=== PATIENT | female | born 1950 | race Hispanic/Latino ===

== ENCOUNTER 2018-01-31 19:11 | Emergency (ER) | payer OTHER ==
[2018-01-31 19:52] LABS: BASOPHILS % (AUTO) 0.3 % (0.0-5.0); EOSINOPHILS % (AUTO) 1.6 % (0.0-8.0); HEMATOCRIT 38.3 % (36-48); LYMPHOCYTES % (AUTO) 42.8 % (21.0-51.0); MEAN CORPUSCULAR HEMOGLOBIN 29.9 pg (27.0-33.0); MEAN CORPUSCULAR HGB CONC 32.6 g/dL (32.0-36.0); MEAN CORPUSCULAR VOLUME 91.8 fL (79-99); MONOCYTES % (AUTO) 8.8 % (3.0-13.0); NEUTROPHILS % (AUTO) 46.5 % (40.0-77.0); PLATELET COUNT (AUTO) 166 K/uL (130-400); RED BLOOD CELL COUNT(AUTO) 4.17 MIL/uL (4.00-5.50); RED CELL DISTRIBUTION WIDTH 13.6 % (11.0-15.5); WHITE BLOOD COUNT (AUTO) 6.3 K/uL (4.8-10.8)
[2018-01-31] MEDS ORDERED: SODIUM CHLORIDE 0.9% 1000ML 1,000 ML IV ONE (19:55)
[2018-01-31 20:02] LABS: INR 0.97 (0.85-1.15); PARTIAL THROMBOPLASTIN TIME 28.2 SEC (26.3-35.5); PROTHROMBIN TIME 10.2 SEC (9.6-11.6)
[2018-01-31 20:03] LABS: CREATININE 1.1 mg/dL (0.5-1.5); POTASSIUM 3.5 mmol/L (3.5-5.1)
[2018-01-31 20:13] LABS: BILIRUBIN,TOTAL 0.2 mg/dL (0.2-1.0); TOTAL PROTEIN, SERUM 6.8 g/dL (6.0-8.3)
== END 2018-01-31 20:52 | disposition home or self-care (01) ==
LOC: EDH 19:11
DX: E86.0 Dehydration (principal); R55 Syncope and collapse
CPT/HCPCS: 36415; 70450; 71045; 80053; 82550; 83874; 84484; 85025; 85610; 85730; 93005; 94761; 96360; 99285; J7030

== ENCOUNTER 2018-06-06 07:47 | Emergency (ER) | payer OTHER ==
[2018-06-06 08:23] LABS: APPEARANCE,URINE Cloudy (CLEAR); BASOPHILS % (AUTO) 0.7 % (0.0-5.0); BILIRUBIN,URINE Negative (NEGATIVE); COLOR,URINE Yellow (YELLOW); EOSINOPHILS % (AUTO) 0.9 % (0.0-8.0); GLUCOSE, URINE (UA) Negative (NEGATIVE); KETONES,URINE Negative (NEGATIVE); LEUKOCYTE ESTERASE ,URINE Negative (NEGATIVE); MEAN CORPUSCULAR HEMOGLOBIN 30.6 pg (27.0-33.0); MEAN CORPUSCULAR HGB CONC 33.7 g/dL (32.0-36.0); MEAN CORPUSCULAR VOLUME 90.8 fL (79-99); MONOCYTES % (AUTO) 7.1 % (3.0-13.0); NEUTROPHILS % (AUTO) 47.3 % (40.0-77.0); NITRATE,URINE Negative (NEGATIVE); OCCULT BLOOD,URINE Negative (NEGATIVE); PLATELET COUNT (AUTO) 221 K/uL (130-400); PROTEIN,URINE Negative (NEGATIVE); RED CELL DISTRIBUTION WIDTH 13.2 % (11.0-15.5); UROBILINOGEN,URINE 0.2 mg/dL (0.2-1.0); WHITE BLOOD COUNT (AUTO) 6.2 K/uL (4.8-10.8)
[2018-06-06 08:30] LABS: CREATININE 0.7 mg/dL (0.5-1.5); POTASSIUM 3.9 mmol/L (3.5-5.1)
[2018-06-06] MEDS ORDERED: ONDANSETRON ODT 4 MG TAB ONE (08:31)
[2018-06-06 08:34] LABS: ALBUMIN 3.4 g/dL (3.5-5.0); BILIRUBIN,TOTAL 0.4 mg/dL (0.2-1.0); TOTAL PROTEIN, SERUM 7.2 g/dL (6.0-8.3)
[2018-06-06 08:35] LABS: INR 0.99 (0.85-1.15); PARTIAL THROMBOPLASTIN TIME 29.2 SEC (26.3-35.5); PROTHROMBIN TIME 10.4 SEC (9.6-11.6)
[2018-06-06] MEDS ORDERED: MAG HYDROX/AL HYDROX/SIMETH ES 30 ML SUSP UDCUP ONE (09:03)
[2018-06-06] MEDS ORDERED: LIDOCAINE HCL 2% VISCOUS 15 ML UDCUP ONE (09:03)
[2018-06-06] MEDS ORDERED: SODIUM CHLORIDE 0.9% 1000ML 1,000 ML IV ONE (09:03)
[2018-06-06 09:04] LABS: BACTERIA,URINE Few /HPF (None Seen); MUCUS,URINE Moderate LPF (None Seen); RBC,URINE None Seen /HPF (0-1); SQUAMOUS EPITHELIAL CELL,UR Moderate /HPF (0-2); WBC,URINE 0-1 /HPF (0-1)
[2018-06-06] MEDS ORDERED: FAMOTIDINE/PF 20 MG/2 ML VIAL IV ONE (09:05)
== END 2018-06-06 10:29 | disposition home or self-care (01) ==
LOC: EDH 07:47
DX: K52.9 Noninfective gastroenteritis and colitis, unspecified (principal); Z90.49 Acquired absence of other specified parts of digestive tract
CPT/HCPCS: 36415; 71045; 80053; 81001; 82150; 82550; 83690; 84484; 85025; 85610; 85730; 93005; 96361; 96374; 99284; J3490; J7030

== ENCOUNTER 2019-03-13 20:33 | Emergency (ER) | payer OTHER ==
[2019-03-13] MEDS ORDERED: METHYLPREDNISOLONE SOD SUCC 125MG/2ML VIAL ONE (20:59)
[2019-03-13] MEDS ORDERED: FAMOTIDINE/PF 20 MG/2 ML VIAL IV ONE (20:59)
[2019-03-13] MEDS ORDERED: DiphenhydrAMINE HCL 50 MG/ML VIAL ONE ×2 (20:59→23:46)
== END 2019-03-13 23:58 | disposition home or self-care (01) ==
LOC: EDH 20:33
DX: T63.441A Toxic effect of venom of bees, accidental (unintentional), initial encounter (principal); Z90.710 Acquired absence of both cervix and uterus; Z90.49 Acquired absence of other specified parts of digestive tract; Z91.030 Bee allergy status; Y92.89 Other specified places as the place of occurrence of the external cause
CPT/HCPCS: 96374; 96375; 99283; J1200 ×2; J2930; J3490

== ENCOUNTER 2020-02-16 21:55 | Emergency (ER) | payer OTHER ==
[2020-02-16 22:26] LABS: BILIRUBIN,URINE Negative (NEGATIVE); COLOR,URINE Dark Yellow (YELLOW); GLUCOSE, URINE (UA) Negative (NEGATIVE); KETONES,URINE Negative (NEGATIVE); LEUKOCYTE ESTERASE ,URINE Small (NEGATIVE); NITRATE,URINE Negative (NEGATIVE); OCCULT BLOOD,URINE Negative (NEGATIVE); PROTEIN,URINE Trace mg/dL (NEGATIVE)
[2020-02-16 22:27] LABS: APPEARANCE,URINE SLIGHTLY CLOUDY (CLEAR)
[2020-02-16] MEDS ORDERED: FAMOTIDINE/PF 20 MG/2 ML VIAL IV ONE (22:35)
[2020-02-16] MEDS ORDERED: HYOSCYAMINE SULFATE 0.125 MG TAB.SUBL SL ONE (22:35)
[2020-02-16 23:06] LABS: BACTERIA,URINE Moderate /HPF (None Seen)
[2020-02-16 23:07] LABS: CALCIUM OXALATE CRYSTALS,UR Moderate /LPF (None Seen)
[2020-02-16] MEDS ORDERED: CEPHALEXIN 500 MG CAPSULE ONE (23:20)
[2020-02-16 23:33] LABS: BASOPHILS % (AUTO) 0.3 % (0.0-5.0); HEMATOCRIT 39.1 % (36-48); LYMPHOCYTES % (AUTO) 44.4 % (21.0-51.0); MEAN CORPUSCULAR VOLUME 90.9 fL (79-99); PLATELET COUNT (AUTO) 205 K/uL (130-400); RED CELL DISTRIBUTION WIDTH 12.9 % (11.0-15.5); WHITE BLOOD COUNT (AUTO) 9.3 K/uL (4.8-10.8)
[2020-02-16 23:49] LABS: CREATININE 0.8 mg/dL (0.5-1.5); POTASSIUM 3.6 mmol/L (3.5-5.1)
[2020-02-16 23:54] LABS: ALBUMIN 3.5 g/dL (3.5-5.0); BILIRUBIN,TOTAL 0.3 mg/dL (0.2-1.0); TOTAL PROTEIN, SERUM 7.1 g/dL (6.0-8.3)
== END 2020-02-17 00:04 | disposition home or self-care (01) ==
LOC: EDH 21:55
DX: N39.0 Urinary tract infection, site not specified (principal); R10.13 Epigastric pain; R03.0 Elevated blood-pressure reading, without diagnosis of hypertension; Z91.030 Bee allergy status; Z90.710 Acquired absence of both cervix and uterus; Z90.49 Acquired absence of other specified parts of digestive tract
CPT/HCPCS: 36415; 80053; 81001; 82150; 83690; 85025; 87088; 96374; 99283; J3490

== ENCOUNTER 2020-10-11 23:45 | Emergency (ER) | payer MEDICARE, OTHER ==
[~2020-10-11] VITALS: Ht 157.5 cm; Wt 87.1 kg
[2020-10-12 01:17] VITALS: BP 157/69
[2020-10-12] MEDS ORDERED: KETOROLAC 60 MG VIAL (30MG/ML) IM SCH (01:30)
[2020-10-12] MEDS ORDERED: LIDOCAINE 5% TOPICAL PATCH TP SCH (01:30)
[2020-10-12 01:37] VITALS: BP 128/67
[2020-10-12] MEDS ORDERED: ORPH-43 PO (02:22)
[2020-10-12] MEDS ORDERED: MELO7.5T12 PO (02:22)
[2020-10-12] MEDS ORDERED: LIDOP TP (02:22)
[2020-10-12 02:35] VITALS: BP 120/66
== END 2020-10-12 02:22 | disposition home or self-care (01) ==
LOC: EDH 23:45
DX: M62.838 Other muscle spasm (principal); F43.9 Reaction to severe stress, unspecified; Z79.899 Other long term (current) drug therapy
CPT/HCPCS: 96372; 99283; J1885

== ENCOUNTER 2021-03-03 18:19 | Emergency (ER) | payer MEDICARE ==
[~2021-03-03] VITALS: Ht 160 cm; Wt 87.1 kg
[~2021-03-03 18:19] MED LIST: LIDOP TP; MELO7.5T12 PO; ORPH-43 PO
[2021-03-03] MEDS ORDERED: ONDANSETRON 4MG INJ ONE (18:23)
[2021-03-03] MEDS ORDERED: MORPHINE 2 MG SYG ONE (18:24)
[2021-03-03] MEDS ORDERED: MORPHINE 4 MG SYG IV ONE (19:30)
[2021-03-03] MEDS ORDERED: ONDANSETRON 4MG INJ IVP ONE (19:30)
[2021-03-03 20:18] VITALS: BP 114/58
== END 2021-03-03 20:19 | disposition home or self-care (01) ==
LOC: EDH 18:19
DX: S68.121A Partial traumatic metacarpophalangeal amputation of left index finger, initial encounter (principal); E11.9 Type 2 diabetes mellitus without complications; Z79.1 Long term (current) use of non-steroidal anti-inflammatories (NSAID); Z79.899 Other long term (current) drug therapy; X58.XXXA Exposure to other specified factors, initial encounter; Y93.89 Activity, other specified; Y92.89 Other specified places as the place of occurrence of the external cause; Y99.8 Other external cause status
CPT/HCPCS: 73140; 96374; 96375; 99284; J2405

== ENCOUNTER 2022-01-20 17:19 | Observation (INO) | payer MEDICARE ==
[~2022-01-20] VITALS: Ht 160 cm; Wt 86.8 kg
[~2022-01-20 17:19] MED LIST changes: +PANT40GR PO
[2022-01-20] MEDS ORDERED: ENAL5TAB17 PO (17:26)
[2022-01-20] MEDS ORDERED: METO25TA6 PO (17:26)
[2022-01-20 17:46] LABS: BASOPHILS % (AUTO) 0.1 % (0.0-5.0); EOSINOPHILS % (AUTO) 0.6 % (0.0-8.0); HEMATOCRIT 38.5 % (36-48); LYMPHOCYTES % (AUTO) 43.7 % (21.0-51.0); MEAN CORPUSCULAR HEMOGLOBIN 30.3 pg (27.0-33.0); MEAN CORPUSCULAR HGB CONC 33.2 g/dL (32.0-36.0); MONOCYTES % (AUTO) 7.2 % (3.0-13.0); PLATELET COUNT (AUTO) 194 K/uL (130-400); RED BLOOD CELL COUNT(AUTO) 4.23 MIL/uL (4.00-5.50); RED CELL DISTRIBUTION WIDTH 12.8 % (11.0-15.5); WHITE BLOOD COUNT (AUTO) 7.1 K/uL (4.8-10.8)
[2022-01-20] MEDS ORDERED: ASPIRIN 81MG CHEW TAB PO STA (17:58)
[2022-01-20] MEDS ORDERED: NITROGLYCERIN 0.4 MG SL TAB SL STA (17:58)
[2022-01-20 18:04] LABS: CREATININE 0.8 mg/dL (0.5-1.5); POTASSIUM 3.9 mmol/L (3.5-5.1)
[2022-01-20 18:13] LABS: ALBUMIN 3.3 g/dL (3.5-5.0); TOTAL PROTEIN, SERUM 6.9 g/dL (6.0-8.3)
[2022-01-20] MEDS ORDERED: KETOROLAC 15MG/ML VIAL (15MG/ML) IV ONE (20:00)
[2022-01-20] MEDS ORDERED: LABETALOL 20MG SYG IV PRN (21:00)
[2022-01-20] MEDS ORDERED: HYDRALAZINE 20MG/ML VIAL IV PRN (21:00)
[2022-01-20] MEDS ORDERED: DOCUSATE SODIUM 100 MG CAP PO PRN (21:00)
[2022-01-20] MEDS ORDERED: ACETAMINOPHEN 325 MG TAB PO PRN (21:00)
[2022-01-20] MEDS ORDERED: ACETAMINOPHEN 650 MG SUPPOSITORY RC PRN (21:00)
[2022-01-20] MEDS ORDERED: TEMAZEPAM 15 MG CAPSULE PO PRN (21:00)
[2022-01-20] MEDS ORDERED: LACTATED RINGERS 1000ML 1,000 ML IV SCH (21:00)
[2022-01-20] MEDS ORDERED: LACTULOSE 20 GM/30 ML UDCUP PO PRN (21:00)
[2022-01-20] MEDS ORDERED: CLONIDINE HCL 0.1 MG TABLET PO PRN (21:00)
[2022-01-20] MEDS ORDERED: ONDANSETRON 4MG INJ IVP PRN (21:00)
[2022-01-20 22:23] VITALS: BP 159/70
[2022-01-21 04:35] VITALS: BP 132/75
[2022-01-21 05:43] LABS: INR 0.97 (0.85-1.15); PROTHROMBIN TIME 10.6 SEC (9.6-11.6)
[2022-01-21 05:44] LABS: PARTIAL THROMBOPLASTIN TIME 29.7 SEC (26.3-35.5)
[2022-01-21 05:46] LABS: BASOPHILS % (AUTO) 0.3 % (0.0-5.0); EOSINOPHILS % (AUTO) 0.7 % (0.0-8.0); HEMATOCRIT 37.9 % (36-48); LYMPHOCYTES % (AUTO) 50.4 % (21.0-51.0); MEAN CORPUSCULAR HEMOGLOBIN 30.4 pg (27.0-33.0); MEAN CORPUSCULAR HGB CONC 33.2 g/dL (32.0-36.0); MEAN CORPUSCULAR VOLUME 91.3 fL (79-99); MONOCYTES % (AUTO) 6.8 % (3.0-13.0); NEUTROPHILS % (AUTO) 41.5 % (40.0-77.0); PLATELET COUNT (AUTO) 185 K/uL (130-400); RED BLOOD CELL COUNT(AUTO) 4.15 MIL/uL (4.00-5.50); RED CELL DISTRIBUTION WIDTH 12.5 % (11.0-15.5); WHITE BLOOD COUNT (AUTO) 6.7 K/uL (4.8-10.8)
[2022-01-21 06:00] LABS: CREATININE 0.7 mg/dL (0.5-1.5); MAGNESIUM 1.9 mg/dL (1.80-2.40); PHOSPHORUS 4.2 mg/dL (2.5-4.9); POTASSIUM 3.6 mmol/L (3.5-5.1); THYROID STIMULATING HORMONE 4.98 uIU/mL (0.36-3.74)
[2022-01-21 08:00] VITALS: BP 115/67
[2022-01-21] MEDS ORDERED: ASPIRIN 81MG CHEW TAB PO SCH (09:00)
[2022-01-21 12:00] VITALS: BP 124/72
[2022-01-21] MEDS ORDERED: SIMV-43 PO (12:53)
[2022-01-21] MEDS ORDERED: ASPI-1005 PO (12:53)
== END 2022-01-21 15:15 | disposition home or self-care (01) ==
LOC: EDH 17:19 → EDHIP 20:39 → 4DH 22:15
PROVIDERS: ADMIT Internal Medicine Critical Care Medicine; ATTEND Internal Medicine Critical Care Medicine
DX: R07.89 Other chest pain (principal); M25.512 Pain in left shoulder; I10 Essential (primary) hypertension; E66.9 Obesity, unspecified; E11.9 Type 2 diabetes mellitus without complications; G89.29 Other chronic pain; E11.65 Type 2 diabetes mellitus with hyperglycemia; I25.10 Atherosclerotic heart disease of native coronary artery without angina pectoris; Z68.33 Body mass index [BMI] 33.0-33.9, adult
CPT/HCPCS: 96374; 96361 ×2; 99285; 84484 ×3; 80053; 83880; 85025 ×2; 85378; 36415 ×2; 71045; 93005 ×2; 84443; 83735; 84100; 80048; 85610; 85730; 86850; 86900; 86901; G0378 ×18; J1885; J7120

== ENCOUNTER 2022-05-08 17:22 | Emergency (ER) | payer MEDICARE ==
[~2022-05-08] VITALS: Ht 157.5 cm; Wt 83.9 kg
[~2022-05-08 17:22] MED LIST changes: +ASPI-1005 PO; +ENAL5TAB17 PO; -LIDOP TP; -MELO7.5T12 PO; +METO25TA6 PO; -ORPH-43 PO; -PANT40GR PO; +SIMV-43 PO
[2022-05-08 18:40] LABS: BASOPHILS % (AUTO) 0.3 % (0.0-5.0); EOSINOPHILS % (AUTO) 0.5 % (0.0-8.0); HEMATOCRIT 41.2 % (36-48); LYMPHOCYTES % (AUTO) 32.9 % (21.0-51.0); MEAN CORPUSCULAR HEMOGLOBIN 30.3 pg (27.0-33.0); MEAN CORPUSCULAR HGB CONC 33.5 g/dL (32.0-36.0); MEAN CORPUSCULAR VOLUME 90.5 fL (79-99); MONOCYTES % (AUTO) 6.2 % (3.0-13.0); NEUTROPHILS % (AUTO) 59.4 % (40.0-77.0); PLATELET COUNT (AUTO) 221 K/uL (130-400); RED BLOOD CELL COUNT(AUTO) 4.55 MIL/uL (4.00-5.50); RED CELL DISTRIBUTION WIDTH 12.5 % (11.0-15.5); WHITE BLOOD COUNT (AUTO) 7.5 K/uL (4.8-10.8)
[2022-05-08 18:44] LABS: APPEARANCE,URINE CLEAR (CLEAR); BILIRUBIN,URINE NEGATIVE (NEGATIVE); COLOR,URINE LIGHT-YELLOW (YELLOW); GLUCOSE, URINE (UA) >=1000 mg/dL (NEGATIVE); KETONES,URINE NEGATIVE (NEGATIVE); LEUKOCYTE ESTERASE ,URINE NEGATIVE Leu/uL (NEGATIVE); NITRATE,URINE NEGATIVE (NEGATIVE); OCCULT BLOOD,URINE NEGATIVE (NEGATIVE); PROTEIN,URINE NEGATIVE (NEGATIVE); UROBILINOGEN,URINE 0.2 mg/dL (0.2-1.0)
[2022-05-08 18:49] LABS: CREATININE 0.9 mg/dL (0.5-1.5); POTASSIUM 4.2 mmol/L (3.5-5.1)
[2022-05-08 18:53] LABS: ALBUMIN 3.5 g/dL (3.5-5.0); TOTAL PROTEIN, SERUM 7.3 g/dL (6.0-8.3)
[2022-05-08 18:57] LABS: SQUAMOUS EPITHELIAL CELL,UR RARE /HPF (0-2)
[2022-05-08] MEDS ORDERED: 0.9%NACL 1000ML 2,000 ML IV ONE (21:00)
[2022-05-08 21:37] VITALS: BP 123/63
== END 2022-05-08 21:47 | disposition home or self-care (01) ==
LOC: EDH 17:22
DX: I11.0 Hypertensive heart disease with heart failure (principal); I50.9 Heart failure, unspecified; E11.9 Type 2 diabetes mellitus without complications; Z90.49 Acquired absence of other specified parts of digestive tract; Z98.890 Other specified postprocedural states; Z79.899 Other long term (current) drug therapy; Z79.82 Long term (current) use of aspirin
CPT/HCPCS: 36415; 71045; 80053; 81001; 82948; 85025

== ENCOUNTER → 2022-06-06 | Outpatient (CLI) | payer MEDICARE | END | disposition home or self-care (01) | LOC: SHCH 11:09 | PROVIDERS: ATTEND Student in an Organized Health Care Education/Training Program | DX: I11.0 Hypertensive heart disease with heart failure (principal); I50.9 Heart failure, unspecified; E78.5 Hyperlipidemia, unspecified | CPT/HCPCS: 93306 ==

== ENCOUNTER 2022-10-03 07:03 | Day surgery (SDC) | payer MEDICARE ==
[2022-10-01 11:38] LABS: BASOPHILS % (AUTO) 0.3 % (0.0-5.0); EOSINOPHILS % (AUTO) 0.8 % (0.0-8.0); HEMATOCRIT 42.8 % (36-48); LYMPHOCYTES % (AUTO) 40.5 % (21.0-51.0); MEAN CORPUSCULAR HEMOGLOBIN 30.4 pg (27.0-33.0); MEAN CORPUSCULAR HGB CONC 32.7 g/dL (32.0-36.0); MEAN CORPUSCULAR VOLUME 92.8 fL (79-99); MONOCYTES % (AUTO) 6.4 % (3.0-13.0); PLATELET COUNT (AUTO) 201 K/uL (130-400); RED BLOOD CELL COUNT(AUTO) 4.61 MIL/uL (4.00-5.50); WHITE BLOOD COUNT (AUTO) 6.3 K/uL (4.8-10.8)
[2022-10-01 11:48] LABS: PROTHROMBIN TIME 10.9 SEC (9.6-11.6)
[2022-10-01 11:50] LABS: CREATININE 0.7 mg/dL (0.5-1.5); POTASSIUM 4.4 mmol/L (3.5-5.1)
[2022-10-01 11:52] VITALS: BP 104/59
[2022-10-03] VITALS (8 sets, daily range): BP systolic 98–113; BP diastolic 58–68
[~2022-10-03] VITALS: Ht 157.5 cm; Wt 77.6 kg
[~2022-10-03 07:03] MED LIST changes: -ASPI-1005 PO; +CALC-242 PO; +EMPA25TA PO; -ENAL5TAB17 PO; +FURO20TA4 PO; +METO-408 PO; -METO25TA6 PO; +MULT-1367 PO; +SACU1TAB PO; +SEMA0.258 SQ; +SPIR25TA6 PO; +VITAMIN C PO
[2022-10-03] MEDS ORDERED: 0.9%NACL 1000ML 1,000 ML IV ONE (08:09)
[2022-10-03] MEDS ORDERED: LIDOCAINE HCL 1% MDV 50ML VIAL ONE (10:30)
[2022-10-03] MEDS ORDERED: CEFAZOLIN SODIUM 1 GM VIAL ONE (10:30)
[2022-10-03] MEDS ORDERED: BUPIVACAINE/PF 0.25% 10ML VIAL IJ ONE (10:30)
[2022-10-03] MEDS ORDERED: MEPERIDINE-PF 25 MG/ML SYG ONE ×4 (10:47→12:05)
[2022-10-03] MEDS ORDERED: MIDAZOLAM HCL 1 MG/ML 2ML VIAL ONE ×4 (10:47→12:05)
[2022-10-03] MEDS ORDERED: IODIXANOL 320 MG/ML 100 ML VIAL ONE (10:52)
[2022-10-03] MEDS ORDERED: TRAM50TA4 PO (12:43)
[2022-10-03] MEDS ORDERED: ACETAMINOPHEN 500 MG TABLET PO PRN (13:00)
[2022-10-03] MEDS ORDERED: ACETAMINOPHEN WITH CODEINE 1 TAB TAB PO PRN (13:00)
== END 2022-10-03 16:20 | disposition home or self-care (01) ==
LOC: DAH 07:03
PROVIDERS: ATTEND Internal Medicine Cardiovascular Disease
DX: I11.0 Hypertensive heart disease with heart failure (principal); I50.22 Chronic systolic (congestive) heart failure; I42.8 Other cardiomyopathies; J44.9 Chronic obstructive pulmonary disease, unspecified; I44.7 Left bundle-branch block, unspecified; E11.9 Type 2 diabetes mellitus without complications; E78.5 Hyperlipidemia, unspecified; M19.90 Unspecified osteoarthritis, unspecified site; Z90.710 Acquired absence of both cervix and uterus; Z98.890 Other specified postprocedural states; Z82.49 Family history of ischemic heart disease and other diseases of the circulatory system; Z83.3 Family history of diabetes mellitus; Z79.899 Other long term (current) drug therapy; Z79.01 Long term (current) use of anticoagulants
CPT/HCPCS: 80048; 85025; 85610; 85730; 36415; 93005; 33249; 33225; 82948 ×2; 71045; C1769; C1882; C1900; C1896; C1895; J0690; J7030; J2250 ×3; J3490 ×2; J2175 ×3; Q9967; A4215; A4222; A4221; A4663; A4606; A4223 ×3; 99156; 99157

== ENCOUNTER 2022-10-04 06:36 | Emergency (ER) | payer MEDICARE ==
[~2022-10-04] VITALS: Ht 157.5 cm; Wt 79.1 kg
[~2022-10-04 06:36] MED LIST changes: +TRAM50TA4 PO
[2022-10-04 09:07] LABS: BASOPHILS % (AUTO) 0.3 % (0.0-5.0); EOSINOPHILS % (AUTO) 1.4 % (0.0-8.0); HEMATOCRIT 42.8 % (36-48); LYMPHOCYTES % (AUTO) 36.1 % (21.0-51.0); MEAN CORPUSCULAR HGB CONC 31.8 g/dL (32.0-36.0); MEAN CORPUSCULAR VOLUME 94.3 fL (79-99); MONOCYTES % (AUTO) 7.6 % (3.0-13.0); NEUTROPHILS % (AUTO) 54.3 % (40.0-77.0); PLATELET COUNT (AUTO) 168 K/uL (130-400); RED BLOOD CELL COUNT(AUTO) 4.54 MIL/uL (4.00-5.50); RED CELL DISTRIBUTION WIDTH 13.2 % (11.0-15.5); WHITE BLOOD COUNT (AUTO) 7.2 K/uL (4.8-10.8)
[2022-10-04 09:19] LABS: ALANINE AMINOTRANSFERASE 17 U/L (12-78); ALBUMIN 3.4 g/dL (3.5-5.0); ASPARTATE AMINOTRANSFERASE 17 U/L (10-37); CARBON DIOXIDE 30 mmol/L (21-32); CHLORIDE 101 mmol/L (101-111); CREATININE 0.7 mg/dL (0.5-1.5); CRP QUANTITATIVE < 2.00 mg/L (0.00-9.0); GLOMERULAR FILTR. RATE CALC 92 mL/min (>90); GLUCOSE,RANDOM 87 mg/dL (70-105); POTASSIUM 4.5 mmol/L (3.5-5.1); SODIUM SERUM 136 mmol/L (136-145); TOTAL PROTEIN, SERUM 6.8 g/dL (6.0-8.3); UREA NITROGEN, BLOOD 8 mg/dL (7-18)
[2022-10-04 10:59] VITALS: BP 102/53
== END 2022-10-04 10:58 | disposition home or self-care (01) ==
LOC: EDH 06:36
DX: M79.89 Other specified soft tissue disorders (principal); E11.9 Type 2 diabetes mellitus without complications; Z95.0 Presence of cardiac pacemaker; J44.9 Chronic obstructive pulmonary disease, unspecified; Z79.52 Long term (current) use of systemic steroids; Z79.82 Long term (current) use of aspirin; Z79.84 Long term (current) use of oral hypoglycemic drugs; Z79.899 Other long term (current) drug therapy; Z91.030 Bee allergy status
CPT/HCPCS: 36415; 71046; 80053; 85025; 86140; 93971

== ENCOUNTER → 2022-10-28 | Outpatient (CLI) | payer MEDICARE ==
[2022-10-28 12:25] LABS: CREATININE 0.8 mg/dL (0.5-1.5); POTASSIUM 4.2 mmol/L (3.5-5.1)
== END | disposition home or self-care (01) ==
LOC: LAB 09:20
PROVIDERS: ATTEND Student in an Organized Health Care Education/Training Program
DX: I50.22 Chronic systolic (congestive) heart failure (principal)
CPT/HCPCS: 36415; 80048; 83880

== ENCOUNTER → 2023-03-19 | Outpatient (CLI) | payer MEDICARE ==
[~2023-03-19] MED LIST changes: +CETI10CA5 PO; +HYDR50CA50 PO
== END | disposition home or self-care (01) ==
LOC: SHCH 07:45
PROVIDERS: ATTEND Student in an Organized Health Care Education/Training Program
DX: I10 Essential (primary) hypertension (principal)
CPT/HCPCS: 93306

== ENCOUNTER 2024-07-18 17:30 | Emergency (ER) | payer MEDICARE ==
[~2024-07-18] VITALS: Ht 157.5 cm; Wt 80.7 kg
[2024-07-18] MEDS: acetaMINOPHEN 325 MG TAB PO ONE (18:00)
--- NOTE | 2024-07-18 19:19 | HMCIMG ---
LUMBAR SPINE 2-3VWS HISTORY: Status post fall COMPARISON: None FINDINGS: 2 images of lumbar spine were obtained. Post cholecystectomy changes are seen. There are degenerative changes with lumbar spine spondylosis. Disc space narrowings are seen at L4-5 and L5-S1. There is straightening of normal lordotic curvature which may be related to muscle spasm or positioning. No loss of vertebral height is seen. No fracture or dislocation is seen. Degenerative changes are seen. IMPRESSION: 1. No fracture is seen.
--- NOTE | 2024-07-18 19:31 | HMCIMG ---
KNEE 3 VW BILATERAL REASON: fall. COMPARISON: None TECHNIQUE: 4 images of bilateral knees were obtained with weightbearing. FINDINGS: No acute displaced fracture or dislocation is seen. IMPRESSION: Findings as described above.
--- NOTE | 2024-07-18 19:59 | ERN ---
ED Note History of Present Illness Stated Complaint: FALL Chief Complaint: Mechanical Fall Time Seen by MD: 17:43 Time Seen by Midlevel: 17:43 Dictation: Patient is a 74-year-old female with a history of CHF, defibrillator, pacemaker who presents to the emergency department with complaints of bilateral knee pain, low back pain after a ground level fall just prior to arrival. Patient reports she was walking from the has to the parking lot when she fell in a hole and fell on her knees. Patient denies any head trauma. Denies any LOC, denies any nausea or vomiting. Denies any use of blood thinners. Denies any head strike, chest pain back pain or any other injuries. Patient denies any urinary or fecal incontinence. Allergies: Coded Allergies: No Known Allergies (Unverified Allergy, Unknown, 12/22/18) beeswax (Unverified Allergy, Unknown, 03/14/19) Home Meds Active Scripts Hydroxyzine Pamoate (Hydroxyzine Pamoate) 50 Mg Capsule, 50 MG PO TIDP PRN for ANXIETY/AGITATION, #30 CAP 2 Refills Prov:LINNETTE YOUNG Sr., MD 01/30/23 Cetirizine HCl (Zyrtec) 10 Mg Capsule, 10 MG PO BID, #60 CAP 2 Refills Prov:LINNETTE YOUNG Sr., MD 01/30/23 Tramadol Hcl (Tramadol HCl) 50 Mg Tablet, 50 MG PO Q6HPRN PRN for PAIN, #30 TAB 0 Refills Prov:BEATRIZ QUARLES MD 10/03/22 Reported Medications Calcium Carb/Vit D3/Mag11/Zinc (Gjiydki-Ipy-Dtqb-Vit D Tablet) 1 Each Tablet, 1 EACH PO DAILY, TAB 10/01/22 Multivitamin (Multivitamin) 1 Each Tablet, 2 EACH PO DAILY, TAB 10/01/22 [Vitamin C] No Conflict Check, 750 MG PO DAILY 10/01/22 Furosemide (Furosemide) 20 Mg Tablet, 20 MG PO DAILY PRN for EDEMA, TAB 10/01/22 Spironolactone (Spironolactone) 25 Mg Tablet, 25 MG PO DAILY, TAB 10/01/22 Sacubitril/Valsartan (Entresto 24 mg-26 mg Tablet) 1 Each Tablet, 1 EACH PO HS, TAB 10/01/22 Empagliflozin (Jardiance) 25 Mg Tablet, 25 MG PO DAILY, TAB 10/01/22 Semaglutide (Ozempic) 0.25 Mg/0.4 Ml Pen.injctr, 0.05 MG SQ QWEEK 10/01/22 Simvastatin (Simvastatin) 20 Mg Tablet, 20 MG PO HS, TAB 10/01/22 Metoprolol Succinate (Metoprolol Succinate) 25 Mg Tab.er.24h, 25 MG PO DAILY, TAB 10/01/22 Past Medical History Past Medical History: CHF, Diabetes-Type II, Heart Disease, Hypertension Additional Past Medical Hx: CONSTIPATION Surgical History: Pacer/AICD Surgical History Other: BACK, CATARACTS Family History: Negative Social History: Negative RN Note Reviewed/Agreed w/PFSH: Yes Review of System Dictation Constitutional: Negative for fever,chills, and weight loss Eyes: Negative for injury, pain,redness, and discharge ENT: Negative for injury,pain or swelling Cardiovascular: Negative for chest pain, palpitations, and edema Respiratory: Negative for shortness of breath, cough, and wheezing, Abdomen/GI: Negative for abdominal pain, nausea, vomiting, diarrhea, and constipation Back: Negative for injury and pain : Negative for injury, bleeding and discharge MS/Extremity: Negative for injury and deformity bilateral knee pain, low back pain Skin: Negative for rash, and discoloration Neuro: Negative for headache, weakness, numbness, tingling, and seizure Psych: Negative for suicide ideation, homicidal ideation, and hallucinations Initial Vital Sign VS Vital Signs Date Time Temp Pulse Resp B/P (MAP) Pulse Ox O2 Delivery O2 Flow Rate FiO2 07/18/24 17:31 98.1 73 16 154/70 96 Room Air 0 Physical Exam Dictation Vital Signs reviewed General Appearance: Alert, oriented x 3, no acute distress, well developed, nourished. Head and Face: non-traumatic. Eyes: PERRL, pink conjunctivas, eyelid no trauma, anterior chamber with arcus senilis. Ears: Pinnas intact and no signs of trauma or erythema ear canals clear and no discharge TM no erythema Nose: No discharge, no bleeding. Oropharynx: Mouth normal, tongue pink. pharynx clear,no erythema, tonsils no exudates, no abscesses noted, mucous membrane moist Neck: Supple, non-tender, no thyromegaly, no masses, no JVD, no bruits Breast:Deferred Chest:No tenderness, no crepitus, no paradoxical movement, no retractions Lungs:Clear, well-ventilated, symmetric, no rales, no wheezing, no rhonchi, no stridor, good breath sounds bilaterally Heart: Regular rate, regular rhythm, no murmur, no gallops Vascular: no peripheral edema, dorsalis pedis Abdomen: Soft, positive bowel sounds, nondistended, no guarding, nontender, no rebound, no masses no hepatomegaly, no splenomegaly, no Rolle's sign, no hernias. Rectal: Deferred Genital: Deferred Neurological: Normal speech, motor function intact, sensory function intact Musculoskeletal: Neck nontender, full range of motion, full range of motion, low back tenderness, no deformities Extremities: nontender, full range of motion tenderness to knee, full range of motion, no bruising or wounds. Cap refill less than 2 seconds Skin: Color pink, dry, no turgor, no rash, no lacerations, no abrasions, no contusions. Lymphatic: Deferred Results (Laboratory/Radiology) Laboratory/Radiology REASON: fall ORDERING PHYSICIAN: SHARON BAILEY [employer] PROCEDURE: LUMB 2 3VW - LUMBAR SPINE 2-3VWS LUMBAR SPINE 2-3VWS HISTORY: Status post fall COMPARISON: None FINDINGS: 2 images of lumbar spine were obtained. Post cholecystectomy changes are seen. There are degenerative changes with lumbar spine spondylosis. Disc space narrowings are seen at L4-5 and L5-S1. There is straightening of normal lordotic curvature which may be related to muscle spasm or positioning. No loss of vertebral height is seen. No fracture or dislocation is seen. Degenerative changes are seen. IMPRESSION: 1. No fracture is seen. ON: fall ORDERING PHYSICIAN: SHARON BAILEY [employer] PROCEDURE: KNEE 3VBIL - KNEE 3 VW BILATERAL KNEE 3 VW BILATERAL REASON: fall. COMPARISON: None TECHNIQUE: 4 images of bilateral knees were obtained with weightbearing. FINDINGS: No acute displaced fracture or dislocation is seen. IMPRESSION: Findings as described above. Labs Reviewed?: Yes ED Course ED Course Orders Procedure Category Date Status Time Knee 3 Vw Bilateral RAD 07/18/24 Resulted 17:52 Lumbar Spine 2-3vws RAD 07/18/24 Resulted 17:52 Acetaminophen 325 Tab PHA 07/18/24 Complete (Tylenol 325mg Tab 18:00 Current Medications Medications (Trade) Dose Ordered Sig/Tunde Route PRN Reason Start Time Stop Time Status Last Admin Dose Admin Acetaminophen (TYLenol 325MG TAB) 650 mg ONCE ONCE PO 07/18/24 18:00 07/18/24 18:01 DC Vital Signs Date Time Temp Pulse Resp B/P (MAP) Pulse Ox O2 Delivery O2 Flow Rate FiO2 07/18/24 17:31 98.1 73 16 154/70 96 Room Air 0 Medical Decision Making MDM Patient is a 74-year-old female with a history of CHF, defibrillator, pacemaker who presents to the emergency department with complaints of bilateral knee pain, low back pain after a ground level fall just prior to arrival. Patient reports she was walking from the has to the parking lot when she fell in a hole and fell on her knees. Patient denies any head trauma. Denies any LOC, denies any nausea or vomiting. Denies any use of blood thinners. Denies any head strike, chest pain back pain or any other injuries. Patient denies any urinary or fecal incontinence. X-ray showed no acute fractures or dislocation. Patient in no acute distress, ambulatory, neurovascular intact. Will be discharged to follow up PCP. Differential diagnosis: Knee sprain, knee fracture, back sprain lumbar fracture Need for hospitalization: Patient does not meet criteria for hospitalization. There are no social concerns with this patient. DX & DISP Disposition: Discharge Departure Impression: Primary Impression: Fall Additional Impressions: Back strain, Knee pain, bilateral Condition: Stable Additional Instructions: Is follow up with primary doctor in 1-2 days. If symptoms worsen please return to ER. FOLLOW-UP WITH PRIMARY CARE PROVIDER IN 1 TO 2 DAYS. TAKE MEDICATIONS DIRECTED HERE IN THE EMERGENCY ROOM. OKAY TO CONTINUE HOME MEDICATIONS UNLESS OTHERWISE DISCUSSED DURING YOUR VISIT IN THE EMERGENCY ROOM TODAY. RETURN TO YOUR NEAREST EMERGENCY ROOM IF SYMPTOMS WORSEN OR IF THERE IS NO IMPROVEMENT. CALL 911 IF YOU NEED IMMEDIATE ASSISTANCE. TAKE TYLENOL OR MOTRIN [id number] NEEDED AND IF NO CONTRAINDICATIONS ARE PRESENT. INCREASE ORAL HYDRATION. A WOUND CULTURE OR URINE CULTURE WAS ORDERED HERE IN THE EMERGENCY ROOM DEPARTMENT PLEASE FOLLOW-UP WITH PRIMARY CARE PROVIDER AND ADVISE THEM TO GET REPEAT PORTS FROM OUR FACILITY. IF YOU HAD ANY SILVIA WRAP/SPLINTS THAT WERE APPLIED HERE, PLEASE DO NOT REMOVE THEM UNTIL YOU SEE YOUR PRIMARY CARE OR SPECIALTY. Referrals: MINDY FIGUEREDO MD (PCP) Time of Disposition: 19:58 I have reviewed the case, and I agree with, Diagnosis and Plan SHARON BAILEY [facility] Jul 18, 2024 19:59
[2024-07-18 21:57] VITALS: BP 142/65; PULSE 78; RESP 20; TEMP 97.8; O2SAT 97
== END 2024-07-18 22:01 | disposition home or self-care (01) ==
LOC: EDH 17:30
DX: S39.012A Strain of muscle, fascia and tendon of lower back, initial encounter (principal); M25.561 Pain in right knee; M25.562 Pain in left knee; E11.9 Type 2 diabetes mellitus without complications; I11.0 Hypertensive heart disease with heart failure; I50.9 Heart failure, unspecified; Z79.84 Long term (current) use of oral hypoglycemic drugs; Z79.85 Long-term (current) use of injectable non-insulin antidiabetic drugs; Z79.899 Other long term (current) drug therapy; Z91.030 Bee allergy status; W17.2XXA Fall into hole, initial encounter; Y93.01 Activity, walking, marching and hiking; Y92.89 Other specified places as the place of occurrence of the external cause; Y99.8 Other external cause status
CPT/HCPCS: 72100; 99284

== ENCOUNTER → 2024-09-13 | Outpatient (CLI) | payer MEDICARE ==
[~2024-09-13] MED LIST changes: +GADOTERATE MEGLUMINE 10 MMOL/20 ML VIAL IV ONE
[2024-09-13 11:44] LABS: CREATININE 0.6 mg/dL (0.5-1.0); POTASSIUM 4.1 mmol/L (3.5-5.1)
[2024-09-13 11:49] LABS: ALBUMIN 3.6 g/dL (3.5-5.0); BILIRUBIN,TOTAL 0.4 mg/dL (0.2-1.0); TOTAL PROTEIN, SERUM 7.2 g/dL (6.0-8.3)
--- NOTE | 2024-09-13 16:41 | HMCIMG ---
Exam Type: MRI OF THE ABDOMEN WITH AND WITHOUT CONTRAST Comparison Study: none History: K76.89 Other specified diseases of liver PROTOCOL: Examination is done with multiecho multiplanar sequences before and after gadolinium administration. ASSET with multiplanar 3-D reconstructions MR cholangiopancreatography sequences are also available for review. FINDINGS: No evidence of nephro or ureterolithiasis is found. No hydronephrosis or ureteral dilatation is seen. There are simple cysts of both kidneys. The stomach is unremarkable. There is no evidence of gastric dilatation. No blastic thickening is noted to suggest inflammation or tumor. There is no perforation. There is no gastric outlet obstruction. There is no ulceration. The spleen is unremarkable. It is not enlarged. The pancreas shows normal anatomy. It is not fatty replaced. It shows no lesions. The pancreatic duct is not dilated. The gallbladder is surgically absent. The adrenal glands are unremarkable. There is no enlargement. No lesions are noted. There are small simple cysts of the liver which is otherwise unremarkable. The visualized segments of large and small bowel appear unremarkable. The bony and vascular structures are unremarkable for the patient's age. IMPRESSION: No acute pathology. Simple cysts of the kidneys and the liver. Status post cholecystectomy.
== END | disposition home or self-care (01) ==
LOC: RAH 10:54
PROVIDERS: ATTEND Internal Medicine Gastroenterology
DX: N28.1 Cyst of kidney, acquired (principal); K76.0 Fatty (change of) liver, not elsewhere classified; K76.89 Other specified diseases of liver; Z90.49 Acquired absence of other specified parts of digestive tract
CPT/HCPCS: 74183; 80053; 36415; A9575

== ENCOUNTER 2024-12-16 13:46 | Observation (INO) | payer MEDICARE ==
[~2024-12-16] VITALS: Ht 157.5 cm; Wt 86.0 kg
[~2024-12-16 13:46] MED LIST changes: -GADOTERATE MEGLUMINE 10 MMOL/20 ML VIAL IV ONE
--- NOTE | 2024-12-16 14:15 | NUR ---
DR. MACKAY AT BEDSIDE, COLLECTING PT HISTORY
[2024-12-16 14:37] LABS: NUCLEATED RED BLOOD CELLS 0.0 % (0.0-0.19); PLATELET COUNT (AUTO) 227.0 K/uL (130-400); RED BLOOD CELL COUNT(AUTO) 4.95 MIL/uL (4.00-5.50); RED CELL DISTRIBUTION WIDTH 13.1 % (11.0-15.5); WHITE BLOOD COUNT (AUTO) 11.6 K/uL (4.8-10.8)
[2024-12-16 14:42] LABS: CREATININE 0.7 mg/dL (0.5-1.0); GLOMERULAR FILTR. RATE CALC 91.0 mL/min (>90); GLUCOSE,RANDOM 95.0 mg/dL (70-105); SODIUM SERUM 141.0 mmol/L (136-145); UREA NITROGEN, BLOOD 15.0 mg/dL (7-18)
[2024-12-16] MEDS: 0.9%NACL 1000ML 1,000 ML IV SCH (14:43)
[2024-12-16 14:47] LABS: ASPARTATE AMINOTRANSFERASE 29.0 U/L (10-37); TOTAL PROTEIN, SERUM 8.1 g/dL (6.0-8.3)
[2024-12-16 14:57] LABS: APPEARANCE,URINE CLEAR (CLEAR); GLUCOSE, URINE (UA) >=1000 mg/dL (NEGATIVE); LEUKOCYTE ESTERASE ,URINE NEGATIVE Leu/uL (NEGATIVE); NITRATE,URINE NEGATIVE (NEGATIVE); OCCULT BLOOD,URINE SMALL (NEGATIVE)
[2024-12-16 14:58] LABS: CREATINE KINASE, TOTAL 94 U/L (21-232)
[2024-12-16 15:00] LABS: ADD UA MICROSCOPIC YES
[2024-12-16 15:03] LABS: SQUAMOUS EPITHELIAL CELL,UR RARE /HPF (0-2)
--- NOTE | 2024-12-16 15:23 | HMCIMG ---
EXAM: CT Abdomen and Pelvis Without IV contrast CLINICAL HISTORY: abdominal pain TECHNIQUE: Axial computed tomography images of the abdomen and pelvis without intravenous contrast. CONTRAST: No IV contrast. COMPARISON: CT examination dated June 20, 2021 FINDINGS: LUNG BASES: Air filled cyst in the right middle lobe No pleural effusions are seen. LIVER: Small hypodense cystic lesion in both lobes of the liver, simple cysts likely. These may be further characterized with ultrasound. GALLBLADDER AND BILE DUCTS: Cholecystectomy. No biliary ductal dilatation is evident. PANCREAS: Unremarkable. SPLEEN: Unremarkable. ADRENAL GLANDS: Unremarkable. KIDNEYS, URETERS, AND BLADDER: The kidneys appear within normal limits. There is no hydronephrosis or hydroureter. No urinary calculi are seen. STOMACH AND BOWEL: Few diverticula in the sigmoid and descending colon. Unremarkable appearance of the stomach. No evidence of bowel obstruction. No evidence suggesting enteritis or colitis. APPENDIX: No evidence of acute appendicitis on CT examination. PERITONEUM: 1.5 cm sized umbilical hernia defect. No free fluid. No free air. LYMPH NODES: No lymphadenopathy is evident. REPRODUCTIVE: Hysterectomy. VASCULATURE: Atherosclerotic calcifications in the aorta and its major branches. No evidence of abdominal aortic aneurysm. BONES: No aggressive appearing osseous lesion. No acute osseous pathology evident. IMPRESSION: 1. No acute intraabdominal or pelvic pathology. 2. 1.5 cm umbilical hernia. /[place]
--- NOTE | 2024-12-16 18:38 | ERN ---
ED Note History of Present Illness Stated Complaint: ABDOMINAL PAIN Chief Complaint: Abdominal Pain Time Seen by MD: 13:54 Dictation: 74-year-old female presenting to the emergency department with generalized abdominal pain nausea vomiting no diarrhea no bleeding no chest pain or shortness of breath Allergies: Coded Allergies: No Known Allergies (Unverified Allergy, Unknown, 12/22/18) beeswax (Unverified Allergy, Unknown, 03/14/19) Home Meds Active Scripts Hydroxyzine Pamoate (Hydroxyzine Pamoate) 50 Mg Capsule, 50 MG PO TIDP PRN for ANXIETY/AGITATION, #30 CAP 2 Refills Prov:LINNETTE YOUNG Sr., MD 01/30/23 Cetirizine HCl (Zyrtec) 10 Mg Capsule, 10 MG PO BID, #60 CAP 2 Refills Prov:LINNETTE YOUNG Sr., MD 01/30/23 Tramadol Hcl (Tramadol HCl) 50 Mg Tablet, 50 MG PO Q6HPRN PRN for PAIN, #30 TAB 0 Refills Prov:BEATRIZ QUARLES MD 10/03/22 Reported Medications Calcium Carb/Vit D3/Mag11/Zinc (Klzidhg-Sex-Jfyv-Vit D Tablet) 1 Each Tablet, 1 EACH PO DAILY, TAB 10/01/22 Multivitamin (Multivitamin) 1 Each Tablet, 2 EACH PO DAILY, TAB 10/01/22 [Vitamin C] No Conflict Check, 750 MG PO DAILY 10/01/22 Furosemide (Furosemide) 20 Mg Tablet, 20 MG PO DAILY PRN for EDEMA, TAB 10/01/22 Spironolactone (Spironolactone) 25 Mg Tablet, 25 MG PO DAILY, TAB 10/01/22 Sacubitril/Valsartan (Entresto 24 mg-26 mg Tablet) 1 Each Tablet, 1 EACH PO HS, TAB 10/01/22 Empagliflozin (Jardiance) 25 Mg Tablet, 25 MG PO DAILY, TAB 10/01/22 Semaglutide (Ozempic) 0.25 Mg/0.4 Ml Pen.injctr, 0.05 MG SQ QWEEK 10/01/22 Simvastatin (Simvastatin) 20 Mg Tablet, 20 MG PO HS, TAB 10/01/22 Metoprolol Succinate (Metoprolol Succinate) 25 Mg Tab.er.24h, 25 MG PO DAILY, TAB 5/23/23 Past Medical History Past Medical History: CHF, Diabetes-Type II, High Cholesterol, Hypertension Additional Past Medical Hx: CONSTIPATION Surgical History: Hysterectomy, Pacer/AICD, Other Surgical History Other: BLADDER LIFT. Family History: Negative Social History: Negative Review of System Dictation Constitutional: Negative for fever,chills, and weight loss Eyes: Negative for injury, pain,redness, and discharge ENT: Negative for injury,pain or swelling Cardiovascular: Negative for chest pain, palpitations, and edema Respiratory: Negative for shortness of breath, cough, and wheezing, Abdomen/GI: Per HPI Back: Negative for injury and pain : Negative for injury, bleeding and discharge MS/Extremity: Negative for injury and deformity Skin: Negative for rash, and discoloration Neuro: Negative for headache, weakness, numbness, tingling, and seizure Psych: Negative for suicide ideation, homicidal ideation, and hallucinations Initial Vital Sign VS Vital Signs Date Time Temp Pulse Resp B/P (MAP) Pulse Ox O2 Delivery O2 Flow Rate FiO2 12/16/24 13:47 85 17 116/65 98 Room Air 0 12/16/24 14:16 98.2 21 Physical Exam Dictation General: awake, alert, NAD Head/Face: Normocephalic, atraumatic Eyes: PERRL, EOMI, vision at baseline ENT: oral cavity clear, TMs clear, no signs of infection Neck: Trachea midline, supple, no nuchal rigidity Cardiovascular: RRR, normal S1/S2, No MRGs, no JVD Respiratory: CTAB, no respiratory distress, No rales or wheezes Abdomen: Soft, non-tender, non-distended, normal bowel sounds, no guarding or rebound. Skin: Warm, dry, normal turgor, no rash MS/Extremity: Pulses equal, no cyanosis, neurovascular intact, FROM Neuro: COAx4, GCS 15, strength 5/5, CN 2-12 intact, normal cerebellar exam, normal gait, Psych: Normal behavior, mood, and affect normal Results (Laboratory/Radiology) Laboratory/Radiology Laboratory Tests Test 12/16/24 14:00 12/16/24 14:13 Urine Color LIGHT-YELLOW (YELLOW) Urine Appearance CLEAR (CLEAR) Urine pH 5.0 (5.0-8.0) Urine Specific [place] 1.034 (1.001-1.031) Urine Protein NEGATIVE mg/dL (NEGATIVE) Urine Glucose (UA) >=1000 mg/dL (NEGATIVE) H Urine Ketones NEGATIVE mg/dL (NEGATIVE) Urine Occult Blood SMALL (NEGATIVE) H Urine Nitrate NEGATIVE (NEGATIVE) Urine Bilirubin NEGATIVE mg/dL (NEGATIVE) Urine Urobilinogen 0.2 mg/dL (0.2-1.0) Urine Leukocyte Esterase NEGATIVE Evin/uL Urine RBC 0-1 /HPF (0-1) Urine WBC 2-5 /HPF (0-1) H Urine Squamous Epithelial Cells RARE /HPF (0-2) Urine Bacteria None /HPF (None Seen) White Blood Count 11.6 K/uL (4.8-10.8) H Red Blood Count 4.95 MIL/uL (4.00-5.50) Hemoglobin 15.1 g/dL (12.0-16.0) Hematocrit 46.5 % (36-48) Mean Corpuscular Volume 93.9 fL (79-99) Mean Corpuscular Hemoglobin 30.5 pg (27.0-33.0) Mean Corpuscular Hemoglobin Concent 32.5 g/dL (32.0-36.0) Red Cell Distribution Width 13.1 % (11.0-15.5) Platelet Count 227 K/uL (130-400) Mean Platelet Volume 9.8 fL (7.5-10.5) Nucleated Red Blood Cells 0.0 % (0.0-0.19) Sodium Level 141 mmol/L (136-145) Potassium Level 4.4 mmol/L (3.5-5.1) Chloride Level 103 mmol/L (101-111) Carbon Dioxide Level 31 mmol/L (21-32) Blood Urea Nitrogen 15 mg/dL (7-18) Creatinine 0.7 mg/dL (0.5-1.0) Glomerular Filtration Rate Calc 91 mL/min (>90) Random Glucose 95 mg/dL (70-105) Total Calcium 9.4 mg/dL (8.5-10.1) Total Bilirubin 0.7 mg/dL (0.2-1.0) Aspartate Amino Transf (AST/SGOT) 29 U/L (10-37) Alanine Aminotransferase (ALT/SGPT) 28 U/L (12-78) Alkaline Phosphatase 112 U/L (50-136) Total Creatine Kinase 94 U/L (21-232) # Troponin I High Sensitivity < 4 ng/L (4-50) L Total Protein 8.1 g/dL (6.0-8.3) Albumin 3.9 g/dL (3.5-5.0) Lipase 618 U/L (16-77) H Labs Reviewed?: Yes EKG: (+) NSR, (+) rhythm, (+) QRS, (+) nonspecific ST T wave chg ED Course ED Course Orders Procedure Category Date Status Time Urinalysis Profile LAB 12/16/24 Complete 14:19 Cbc Without LAB 12/16/24 Complete Differential 14:21 Comprehensive LAB 12/16/24 Complete Metabolic Panel 14:21 Lipase LAB 12/16/24 Complete 14:33 Creatine Kinase, Total LAB 12/16/24 Complete 14:33 Troponin I High LAB 12/16/24 Complete Sensitivity 14:33 Ct Abd/Pel Wo Con CT 12/16/24 Resulted Renal/Appy 14:33 Ondansetron 4mg Inj PHA 12/16/24 In Process (Zofran 4mg Inj) 15:00 0.9%Nacl 1000ml (Ns PHA 12/16/24 In Process 1000ml) 15:00 Morphine 4mg Syg PHA 12/16/24 Complete (Morphine 4mg Syg) 16:30 Triglycerides LAB 12/16/24 In Process 18:02 Current Medications Medications (Trade) Dose Ordered Sig/Tunde Route PRN Reason Start Time Stop Time Status Last Admin Dose Admin Morphine Sulfate (morPHINE 4MG SYG) 4 mg ONCE ONCE IVP 12/16/24 16:30 12/16/24 16:31 DC 12/16/24 16:24 Ondansetron HCl (zoFRAN 4MG INJ) 4 mg ONCE IVP 12/16/24 15:00 12/16/24 19:00 12/16/24 14:43 Sodium Chloride 1,000 ml @ 0 mls/hr ONCE IV 12/16/24 15:00 12/16/24 19:00 12/16/24 14:43 Vital Signs Date Time Temp Pulse Resp B/P (MAP) Pulse Ox O2 Delivery O2 Flow Rate FiO2 12/16/24 16:21 98.2 100 18 101/58 98 Room Air* 0 12/16/24 15:16 98.2 91 18 120/56 98 Room Air* 0 21 8/7/25 14:16 98.2 94 18 122/44 96 Room Air* 0 21 12/16/24 13:47 85 17 116/65 98 Room Air 0 Medical Decision Making MDM MDM: Differential diagnosis: Rationale: Tests considered and ordered secondary to shared decision making incl ude: labs, ECG and radiology Previous outside records reviewed: Old ER visits. Risk of complication and/or morbidity or mortality of patient management: None Medications-Per medication reconciliation Need for hospitalization: Patient does meet criteria for hospitalization. Need for emergency major/minor surgery: No There are no social concerns with this patient. Prescription drug management Prescriptions will include symptomatic care Patient's prior external medical records from other ER visits were reviewed by me as indicated. Prior testing and results from previous visits were reviewed. Prior tests were taken into account with medical decision making and resource utilization, independent historian/historians were used to obtain complete medical history. I independently interpreted the test that were performed, results were reviewed by me and considered findings on radiology if ordered. Medical management and examination interpretation discussions were had by me with other qualified healthcare professionals as indicated for the patient's care. 74-year-old female with acute pancreatitis and acute abdominal pain, stable exam symptoms improved IV fluids and pain medicine given admitting to Medicine for further care and evaluation. DX & DISP Disposition: Inpatient Departure Impression: Primary Impression: Acute pancreatitis Condition: Stable Referrals: ADITHYA FIGUEREDO MD (PCP) KAIN NOLAN MD Dec 16, 2024 18:38
--- NOTE | 2024-12-16 18:40 | NUR ---
PT TOOK HOME MEDS. PT WAS ADVISED THAT I DON'T HAVE ORDERS TO CONTINUE HOME MEDS. PT STATES SHE IS GONNA TAKE THEM ANYWAY BECAUSE SHE ADVISED TO DO BY HER PCP
[2024-12-16] MEDS ORDERED: SACU1TAB PO (18:54)
[2024-12-16] MEDS ORDERED: METO-408 PO (18:54)
[2024-12-16] MEDS ORDERED: SPIR25TA6 PO (18:54)
[2024-12-16] MEDS ORDERED: EMPA25TA PO (18:54)
[2024-12-16] MEDS ORDERED: ATOR10 PO (18:54)
[2024-12-16] MEDS ORDERED: LACTULOSE 20 GM/30 ML UDCUP PO PRN (19:00)
[2024-12-16] MEDS: LACTATED RINGERS 1000ML 1,000 ML IV SCH (19:13)
--- NOTE | 2024-12-16 19:26 | HP ---
[facility] HISTORY AND PHYSICAL Date of Service: Dec 16, 2024 Time of Service: 19:25 PCP: Abdulaziz Pina Attending/supervising physicians: Dr. Anaya and Dr. Evans HISTORY OF PRESENT ILLNESS: Ms Sierra is 74-year-old female with a history of CHF, DM type 2, hypercholesteremia, HTN, constipation, CAD s/p pacemaker/AICD, history of liver and renal cyst who presented to [facility] ED for evaluation of generalized abdominal pain, nausea, vomiting onset today. The patient reported that the pain is worse in the upper abdomen. She states that the pains in nausea started after eating. Patient stated that yesterday she was doing fine without any problems. She reports that she sees a GI doctor in [place] for a liver cyst who informed her that it is not causing any problems and that there is no surgical intervention. The patient reports that she sees Dr. Tobin, bead wire taper for a kidney cyst. She states that they are just also monitoring the kidney cyst. The patient denied any diarrhea, no hematemesis, melena, chest pain or shortness of breath. The patient was found to have a lipase of 618, WBCs 11.6. Triglycerides levels WNL. UA negative for leuk EST and nitrites. Patient is negative for influenza, COVID, rapid strep. CT abdomen and pelvis without contrast: No acute intra- abdominal or pelvic pathology. 1.5 cm umbilical hernia. Air filled cyst in the right middle lobe. Small hypodense cystic lesion in both lobes of the liver, simple cysts likely. Pancreas unremarkable. ED provider request the patient be admitted with the diagnosis of acute pancreatitis. I assessed the patient in ED 2. The patient appeared comfortable, breathing was even, unlabored, in no distress. Patient denied any pain during my assessment. She reports some nausea. I informed her of labs, diagnostics, and plan of care. She verbalized understanding and is in agreement with the plan. Plan and assessment are listed below. REVIEW OF SYSTEMS 12-point ROS reviewed with patient. All pertinent positives mentioned above. Otherwise negative, noncontributory, non-pertinent. PAST MEDICAL HISTORY: As mentioned above PAST SURGICAL HISTORY: Pacemaker/AICD, bladder lift PAST SOCIAL HISTORY: The patient denied alcohol, tobacco, illicit drug use FAMILY HISTORY: Noncontributory Coded Allergies: No Known Allergies (Unverified Allergy, Unknown, 12/22/18) beeswax (Unverified Allergy, Unknown, 03/14/19) PHYSICAL EXAM GENERAL APPEARANCE: The patient is awake, alert, and oriented, in no acute cardiopulmonary distress. NEUROLOGICAL: Cranial nerves II-XII grossly intact. Motor is 5/5 in bilateral upper and lower extremities proximal to distal. No sensory deficits. HEENT: Face is symmetric. Pupils are equal and reactive. Extraocular movements are intact. NECK: Supple. No JVD. No thyromegaly. No submental, submandibular, pre- /postauricular, occipital or supraclavicular lymphadenopathy. CHEST: Normal chest expansion. No Telemetry. LUNGS: Absence of any rales, rhonchi or any wheezing. CARDIOVASCULAR: Regular. S1 and S2 normal. No appreciable rubs, murmurs or gallops. ABDOMEN: Soft, nontender, obese, and nondistended. There is no rebound, volu ntary guarding, or rigidity. : Deferred. No Montiel. EXTREMITIES: Non-edematous and not cyanotic. No clubbing. Good capillary refill. SKIN: No skin breakdown. Vital Sign (Last 24 Hours) 12/16/24 16:21 Temp 98.2 Pulse 100 Resp 18 B/P (MAP) 101/58 Pulse Ox 98 O2 Delivery Room Air* O2 Flow Rate 0 FiO2 21 LABS: Laboratory: Test 12/16/24 14:13 12/16/24 14:00 Range/Units White Blood Count 11.6 H 4.8-10.8 K/uL Red Blood Count 4.95 4.00-5.50 MIL/uL Hemoglobin 15.1 12.0-16.0 g/dL Hematocrit 46.5 36-48 % Mean Corpuscular Volume 93.9 79-99 fL Mean Corpuscular Hemoglobin 30.5 27.0-33.0 pg Mean Corpuscular Hemoglobin Concent 32.5 32.0-36.0 g/dL Red Cell Distribution Width 13.1 11.0-15.5 % Platelet Count 227 130-400 K/uL Mean Platelet Volume 9.8 7.5-10.5 fL Nucleated Red Blood Cells 0.0 0.0-0.19 % Sodium Level 141 136-145 mmol/L Potassium Level 4.4 3.5-5.1 mmol/L Chloride Level 103 101-111 mmol/L Carbon Dioxide Level 31 21-32 mmol/L Blood Urea Nitrogen 15 7-18 mg/dL Creatinine 0.7 0.5-1.0 mg/dL Glomerular Filtration Rate Calc 91 >90 mL/min Random Glucose 95 70-105 mg/dL Total Calcium 9.4 8.5-10.1 mg/dL Total Bilirubin 0.7 0.2-1.0 mg/dL Aspartate Amino Transf (AST/SGOT) 29 10-37 U/L Alanine Aminotransferase (ALT/SGPT) 28 12-78 U/L Alkaline Phosphatase 112 50-136 U/L Total Creatine Kinase 94 # 21-232 U/L Troponin I High Sensitivity < 4 L 4-50 ng/L Total Protein 8.1 6.0-8.3 g/dL Albumin 3.9 3.5-5.0 g/dL Triglycerides Level 71 30-200 mg/dL Lipase 618 H 16-77 U/L Urine Color LIGHT-YELLOW YELLOW Urine Appearance CLEAR CLEAR Urine pH 5.0 5.0-8.0 Urine Specific [place] 1.034 H 1.001-1.031 Urine Protein NEGATIVE NEGATIVE mg/dL Urine Glucose (UA) >=1000 H NEGATIVE mg/dL Urine Ketones NEGATIVE NEGATIVE mg/dL Urine Occult Blood SMALL H NEGATIVE Urine Nitrate NEGATIVE NEGATIVE Urine Bilirubin NEGATIVE NEGATIVE mg/dL Urine Urobilinogen 0.2 0.2-1.0 mg/dL Urine Leukocyte Esterase NEGATIVE NEGATIVE Evin/uL Urine RBC 0-1 0-1 /HPF Urine WBC 2-5 H 0-1 /HPF Urine Squamous Epithelial Cells RARE 0-2 /HPF Urine Bacteria None None Seen /HPF Current Medications Medications (Trade) Dose Ordered Sig/Tunde Route PRN Reason Start Time Stop Time Status Last Admin Dose Admin Acetaminophen (TYLenol 325MG TAB) 650 mg Q6H PRN PO FEVER/MILD PAIN LEVEL 1-3 12/16/24 19:00 01/15/25 18:59 Acetaminophen (TYLenol 650MG SUPPOSITORY) 650 mg Q6H PRN RC FEVER / MILD PAIN 1-3 IF NPO 12/16/24 19:00 01/15/25 18:59 Docusate Sodium (COLace 100MG CAP) 100 mg BID PRN PO CONSTIPATION 12/16/24 19:00 01/15/25 18:59 Enoxaparin Sodium (Lovenox) 40 mg DAILY SQ 12/17/24 09:00 01/16/25 08:59 Famotidine (Pepcid 20mg Tab) 20 mg BID PO 12/16/24 21:00 01/15/25 20:59 Insulin Human Regular (humuLIN R 100 UNIT/ML 3ML) INSULIN SLIDING SCAL... ACHS SQ 12/16/24 21:00 01/15/25 20:59 Ketorolac Tromethamine (toRADol) 15 mg Q6H PRN IV MODERATE PAIN (4-6) 12/16/24 19:30 12/21/24 19:29 Labetalol HCl (TRANdate 20MG SYG) 10 mg Q2H PRN IV SBP GREATER THAN 160 12/16/24 19:00 01/15/25 18:59 Lactated Ringer's 1,000 ml @ 100 mls/hr Q10H IV 12/16/24 19:30 01/15/25 19:29 12/16/24 19:13 100 MLS/HR Lactulose (Constulose 20gm/ 30ml Udcup) 20 gm Q6H PRN PO CONSTIPATION 12/16/24 19:00 01/15/25 18:59 Morphine Sulfate (morPHINE 4MG SYG) 2 mg Q4H PRN IVP SEVERE PAIN (7-10) 12/16/24 19:00 12/23/24 18:59 Ondansetron HCl (zoFRAN 4MG INJ) 4 mg ONCE IVP 12/16/24 15:00 12/16/24 19:00 DC 12/16/24 14:43 4 MG Ondansetron HCl (zoFRAN 4MG INJ) 4 mg Q6H PRN IVP NAUSEA/VOMITING 12/16/24 19:00 01/15/25 18:59 Sacubitril/ Valsartan (Entresto 24 Mg-26 Mg Tablet) 1 each BID PO 12/16/24 21:00 01/15/25 20:59 UNV Sodium Chloride 1,000 ml @ 0 mls/hr ONCE IV 12/16/24 15:00 12/16/24 19:00 DC 12/16/24 14:43 1,000 MLS/HR Temazepam (restORIL 15 MG CAP) 15 mg HS PRN PO INSOMNIA/SLEEP 12/16/24 19:00 01/15/25 18:59 Tramadol HCl (UltRAM) 50 mg Q6H PRN PO MODERATE PAIN (4-6) 12/16/24 19:00 12/21/24 18:59 DIAGNOSTICS / RADIOLOGY: [ ] ASSESSMENT: Acute pancreatitis, POA, (pancreas unremarkable per CT) Hyperlipasemia, lipase 618 on arrival, POA Small hypodense cystic lesion in both lobes of the liver, simple cysts likely, per CT on 12/16/2024. Leukocytosis, POA Gastroenteritis, POA Acute abdominal pain, POA Acute nausea and vomiting, POA Air filled cyst in the right middle lobe, per CT on 12/16/2024 Acute on chronic kidney disease, GFR 91 (GFR 58-92 on 2022) Diabetes mellitus with hyperglycemia, POA Glucosuria, occult hematuria, per UA on 12/16/2024 1.5 cm umbilical hernia, per CT on 12/16/2024 Obese, BMI 34.7 Chronic problem list: CHF, DM type 2, hypercholesteremia, HTN, constipation, CAD s/p pacemaker/AICD, history of liver and renal cyst PLAN: -Admit to medical floor with telemetry monitoring. -NPO for now. -Start Zosyn 3.375 Empiric coverage for gastroenteritis/possible intra- abdominal infection, leukocytosis. -Monitor for any fevers. Follow WBCs and blood cultures. Antibiotic therapy tailored to culture results. De-escalate antibiotics if possible -LR at 100 mL an hour. -Reconciled home medications: Atorvastatin, metoprolol, and Entresto. -Hold home medication Jardiance and spironolactone for now (For now using sliding scale and hydrating the patient). -Prn medications for: Pain management, nausea, vomiting, hypertension, fever, constipation. -Oxygen therapy as needed. Titrate oxygen prn to keep Spo2>/+=92%. -Glucometer checks AC & HS needed with insulin regular sliding scale coverage as needed. -Blood pressure checks every 4 hours and as needed. - Monitor renal and liver function. -Monitor electrolytes and treat accordingly PRN -AM labs. -GI and DVT prophylaxis -Further plan/orders per hospitalization course. ADVANCED CARE PLANNING 1. Which of the following were discussed? Hospice Care - No Therapeutic options - Yes Advance Directives - Yes Other discussions - 2. Discussed with who? The patient 3. Voluntary nature of this service was explained to the patient? Yes 4. Amount of time spent - __ Over 35 minutes 5. Reviewed by Physician? (if this service was performed by UMESH) ATTESTATION BY PHYSICIAN I reviewed the documentation, medical decision making, and treatment plan as noted by the mid-level provider above. I agree with the findings and plan of care. BILL LINDER [facility] Dec 16, 2024 19:26
[2024-12-16] MEDS: SACUBITRIL/VALSARTAN 1 EACH TABLET PO SCH (19:38)
--- NOTE | 2024-12-16 19:38 | NUR ---
PT HAS ALREADY TAKEN HER PM MEDS, PRIOR TO ORDER PLACED
[2024-12-16 19:45] LABS: RAPID GROUP A STREP negative (NEGATIVE)
[2024-12-16 19:54] LABS: SARS-CoV-2, RNA, NAAT NEGATIVE SARS CoV-2 (NEGATIVE)
[2024-12-16 19:55] LABS: INFLUENZA TYPE A Negative For Type A (NEGATIVE); INFLUENZA TYPE B Negative For Type B (NEGATIVE)
[2024-12-16] MEDS: FAMOTIDINE 20MG TAB PO SCH (20:02)
--- NOTE | 2024-12-16 20:45 | NUR ---
PT HAD AN EPISODE OF EMESIS
[2024-12-16 21:05] VITALS: BP 107/63; PULSE 103; RESP 20; TEMP 100.6; O2SAT 94
[2024-12-16] MEDS ORDERED: 0.9%NACL 50ML IV SCH (22:10)
[2024-12-16] MEDS: ZOSYN 3.375GM +NS 50ML IVPB SCH (22:41)
[2024-12-16 23:21] VITALS: BP 111/70; PULSE 100; RESP 20; TEMP 101
[2024-12-17 03:06] VITALS: BP 100/54; PULSE 84; RESP 20; TEMP 99.3
[2024-12-17 03:51] LABS: NUCLEATED RED BLOOD CELLS 0.0 % (0.0-0.19); PLATELET COUNT (AUTO) 165.0 K/uL (130-400); RED BLOOD CELL COUNT(AUTO) 4.68 MIL/uL (4.00-5.50); RED CELL DISTRIBUTION WIDTH 13.2 % (11.0-15.5); WHITE BLOOD COUNT (AUTO) 6.4 K/uL (4.8-10.8)
[2024-12-17 04:19] LABS: ASPARTATE AMINOTRANSFERASE 14.0 U/L (10-37); CREATININE 0.8 mg/dL (0.5-1.0); GLOMERULAR FILTR. RATE CALC 77.0 mL/min (>90); GLUCOSE,RANDOM 126.0 mg/dL (70-105); PHOSPHORUS 5.2 mg/dL (2.5-4.9); SODIUM SERUM 142.0 mmol/L (136-145); TOTAL PROTEIN, SERUM 6.6 g/dL (6.0-8.3); UREA NITROGEN, BLOOD 21.0 mg/dL (7-18)
[2024-12-17 08:00] VITALS: BP 105/52; PULSE 89; RESP 20; TEMP 98.9; O2SAT 93
[2024-12-17] MEDS: ENOXAPARIN SODIUM 40 MG/0.4 ML SYRINGE SQ SCH (08:59)
--- NOTE | 2024-12-17 10:15 | NUR ---
DCP CM MET WITH PT THIS MORNING INITIAL ASSESSMENT DONE. PATIENT IS INDEPENDENT PRIOR TO ADMISSION, LIVES AT HOME ALONE, DAUGHTER LIVES CLOSE BY. PT HAS OWN GLUCOMETER AND BPM. DENIES ANY OTHER EQUIPMENT/SERVICES. USES [employer] [facility]. FEELS SAFE TO GO BACK HOME, DAUGHTER ABLE TO ASSIST WITH TRANSPORTATION AND NEEDS NECESSARY. DCP HOME ONCE STABLE. CM TO CONTINUE TO FOLLOW UP. Addendum: 12/17/24 at 1555 by ANGÉLICA HU LVN CM Amended: Links added.
--- NOTE | 2024-12-17 11:38 | DS ---
Discharge Summary Hospital Course Summary: Ms Sierra is 74-year-old female with a history of CHF, DM type 2, hypercholesteremia, HTN, constipation, CAD s/p pacemaker/AICD, history of liver and renal cyst who presented to [facility] ED for evaluation of generalized abdominal pain, nausea, vomiting onset today. The patient reported that the pain is worse in the upper abdomen. She states that the pains in nausea started after eating. Patient stated that yesterday she was doing fine without any problems. She reports that she sees a GI doctor in [place] for a liver cyst who informed her that it is not causing any problems and that there is no surgical intervention. The patient reports that she sees Dr. Tobin, neon glass bender for a kidney cyst. She states that they are just also monitoring the kidney cyst. The patient denied any diarrhea, no hematemesis, melena, chest pain or shortness of breath. The patient was found to have a lipase of 618, WBCs 11.6. Triglycerides levels WNL. UA negative for leuk EST and nitrites. Patient is negative for influenza, COVID, rapid strep. CT abdomen and pelvis without contrast: No acute intra- abdominal or pelvic pathology. 1.5 cm umbilical hernia. Air filled cyst in the right middle lobe. Small hypodense cystic lesion in both lobes of the liver, simple cysts likely. Pancreas unremarkable. ED provider request the patient be admitted with the diagnosis of acute pancreatitis. . Patient lying in bed very minimal diarrhea described as loose stools she denied that is watery. Acute pancreatitis resolved. If patient tolerates diet she will be discharged she is hemodynamically stable for discharge we will follow-up with PCP 2-3 days she denied chest pain shortness a breath abdominal pain nausea or vomiting. During the course of stay patient received two doses of 3.375 g Zosyn IV. Procedure(s): REASON: abdominal pain ORDERING PHYSICIAN: KAIN NOLAN MD PROCEDURE: ABD PELVWO - CT ABD/PEL WO CON RENAL/APPY EXAM: CT Abdomen and Pelvis Without IV contrast CLINICAL HISTORY: abdominal pain TECHNIQUE: Axial computed tomography images of the abdomen and pelvis without intravenous contrast. CONTRAST: No IV contrast. COMPARISON: CT examination dated June 20, 2021 FINDINGS: LUNG BASES: Air filled cyst in the right middle lobe No pleural effusions are seen. LIVER: Small hypodense cystic lesion in both lobes of the liver, simple cysts likely. These may be further characterized with ultrasound. GALLBLADDER AND BILE DUCTS: Cholecystectomy. No biliary ductal dilatation is evident. PANCREAS: Unremarkable. SPLEEN: Unremarkable. ADRENAL GLANDS: Unremarkable. KIDNEYS, URETERS, AND BLADDER: The kidneys appear within normal limits. There is no hydronephrosis or hydroureter. No urinary calculi are seen. STOMACH AND BOWEL: Few diverticula in the sigmoid and descending colon. Unremarkable appearance of the stomach. No evidence of bowel obstruction. No evidence suggesting enteritis or colitis. APPENDIX: No evidence of acute appendicitis on CT examination. PERITONEUM: 1.5 cm sized umbilical hernia defect. No free fluid. No free air. LYMPH NODES: No lymphadenopathy is evident. REPRODUCTIVE: Hysterectomy. VASCULATURE: Atherosclerotic calcifications in the aorta and its major branches. No evidence of abdominal aortic aneurysm. BONES: No aggressive appearing osseous lesion. No acute osseous pathology evident. IMPRESSION: 1. No acute intraabdominal or pelvic pathology. 2. 1.5 cm umbilical hernia. /[place] DICTATED BY: JEFF WAN Jr., MD DATE: 12/16/24 1622 Assessment/Plan: Discharged dx's: Acute pancreatitis, POA, (pancreas unremarkable per CT) results Hyperlipasemia, lipase 618 on arrival, POA resolved Small hypodense cystic lesion in both lobes of the liver, simple cysts likely, per CT on 12/16/2024. Leukocytosis, POA resolved Gastroenteritis, POA Acute abdominal pain, POA Acute nausea and vomiting, POA Air filled cyst in the right middle lobe, per CT on 12/16/2024 Acute on chronic kidney disease, GFR 91 (GFR 58-92 on 2022) Diabetes mellitus with hyperglycemia, POA Glucosuria, occult hematuria, per UA on 12/16/2024 1.5 cm umbilical hernia, per CT on 12/16/2024 Obese, BMI 34.7 Chronic problem list: CHF, DM type 2, hypercholesteremia, HTN, constipation, CAD s/p pacemaker/AICD, history of liver and renal cyst PLAN: -ADMISSION DATE: 12/16/2024 DISCHARGE DATE: 12/17/2024 DISPOSITION: Home CONDITION: Stable CLINICAL OPERATIONS SPECIALIST(S): None FOLLOW UP APPOINTMENT(S): PCP 2-[address] Abdulaziz Pina PROCEDURES: None IMAGING (S) report attached to summary : MICROBIOLOGY: report attached to summary; ACTIVITY: Ad ariel HOME MEDICATIONS remain the same CHANGES ON HOME MEDICATIONS none NEW MEDICATIONS none TEACHING: Emergency instructions: The patient was instructed to present to the nearest Emergency Department or call 911 should their symptoms return or worsen. Discharge Instructions: Item Value Date Time White Blood Count 11.6 K/uL H 12/16/24 1413 White Blood Count 6.4 K/uL # 12/17/24 0342 Red Blood Count 4.68 MIL/uL 12/17/24 0342 Hemoglobin 14.3 g/dL 12/17/24 0342 Hematocrit 43.8 % 12/17/24 0342 Mean Corpuscular Volume 93.6 fL 12/17/24 0342 Mean Corpuscular Hemoglobin 30.6 pg 12/17/24 0342 Mean Corpuscular Hemoglobin Concent 32.6 g/dL 12/17/24 0342 Red Cell Distribution Width 13.2 % 12/17/24 0342 Platelet Count 165 K/uL # 12/17/24 0342 Mean Platelet Volume 9.6 fL 12/17/24 0342 Nucleated Red Blood Cells 0.0 % 12/17/24 0342 Sodium Level 142 mmol/L 12/17/24 0342 Whole Blood Glucose 132 MG/DL H 12/17/24 0543 Creatinine 0.8 mg/dL 12/17/24 0342 Blood Urea Nitrogen 21 mg/dL H 12/17/24 0342 Carbon Dioxide Level 28 mmol/L 12/17/24 0342 Chloride Level 107 mmol/L 12/17/24 0342 Potassium Level 4.3 mmol/L 12/17/24 0342 Glomerular Filtration Rate Calc 77 mL/min 12/17/24 0342 Whole Blood Glucose 143 MG/DL H 12/16/242004 Random Glucose 126 mg/dL H 12/17/24 0342 Total Calcium 8.4 mg/dL L 12/17/24 0342 Phosphorus Level 5.2 mg/dL H 12/17/24 0342 Magnesium Level 2.00 mg/dL 12/17/24 0342 Total Bilirubin 0.9 mg/dL # 12/17/24 0342 Aspartate Amino Transf (AST/SGOT) 14 U/L 12/17/24 0342 Alanine Aminotransferase (ALT/SGPT) 21 U/L # 12/17/24 034 Alkaline Phosphatase 83 U/L # 12/17/24 034 Troponin I High Sensitivity 5 ng/L 12/17/24 034 Total Protein 6.6 g/dL 12/17/24 0342 Albumin 3.1 g/dL L # 12/17/24 034 Lipase 29 U/L 12/17/24 034 Thyroid Stimulating Hormone (TSH) 1.17 uIU/mL # 12/17/24 034 Lipase 618 U/L H 12/16/24 1413 Triglycerides Level 71 mg/dL 12/16/24 1413 Troponin I High Sensitivity < 4 ng/L L 12/16/24 1413 Total Creatine Kinase 94 U/L # 12/16/24 1413 Influenza Type A Antigen Negative For Type A 12/16/241926 Influenza Type B Antigen Negative For Type B 12/16/241926 SARS-CoV-2, RNA, NAAT NEGATIVE SARS CoV-2 12/16/241926 Group A Streptococcus Rapid negative 12/16/241926 Item Value Date Time Urine Bacteria None /HPF 12/16/24 1400 Urine Squamous Epithelial Cells RARE /HPF 12/16/24 1400 Urine WBC 2-5 /HPF H 12/16/24 1400 Urine Leukocyte Esterase NEGATIVE Evin/uL 12/16/24 1400 Urine Color LIGHT-YELLOW 12/16/24 1400 Urine Appearance CLEAR 12/16/24 1400 Urine pH 5.0 12/16/24 1400 Urine Specific [place] 1.034 H 12/16/24 1400 Urine Protein NEGATIVE mg/dL 12/16/24 1400 Urine Glucose (UA) >=1000 mg/dL H 12/16/24 1400 Urine Ketones NEGATIVE mg/dL 12/16/24 1400 Urine Nitrate NEGATIVE 12/16/24 1400 Urine Bilirubin NEGATIVE mg/dL 12/16/24 1400 Urine Urobilinogen 0.2 mg/dL 12/16/24 1400 Urine RBC 0-1 /HPF 12/16/24 1400 Home Medications: Reported Medications Spironolactone (Spironolactone) 25 Mg Tablet, 1 TAB PO DAILY for 30 Days, #30 TAB 0 Refills 12/16/24 Atorvastatin Calcium (LIPITOR) 10 Mg Tab, 1 TAB PO HS for 30 Days, #30 TAB 0 Refills 12/16/24 Metoprolol Succinate (Metoprolol Succinate) 25 Mg Tab.er.24h, 1 TAB PO BID for 30 Days, #30 TAB 0 Refills 12/16/24 Sacubitril/Valsartan (Entresto 24 mg-26 mg Tablet) 24 Mg-26 Mg Tablet, 1 TAB PO BID for 30 Days, #60 TAB 0 Refills 12/16/24 Empagliflozin (Jardiance) 25 Mg Tablet, 1 TAB PO DAILY for 30 Days, #30 TAB 0 Refills 12/16/24 Discontinued Reported Medications Calcium Carb/Vit D3/Mag11/Zinc (Dppdhyg-Bze-Itnb-Vit D Tablet) 1 Each Tablet, 1 EACH PO DAILY, TAB 10/01/22 Multivitamin (Multivitamin) 1 Each Tablet, 2 EACH PO DAILY, TAB 10/01/22 [Vitamin C] No Conflict Check, 750 MG PO DAILY 10/01/22 Furosemide (Furosemide) 20 Mg Tablet, 20 MG PO DAILY PRN for EDEMA, TAB 10/01/22 Spironolactone (Spironolactone) 25 Mg Tablet, 25 MG PO DAILY, TAB 10/01/22 Sacubitril/Valsartan (Entresto 24 mg-26 mg Tablet) 1 Each Tablet, 1 EACH PO HS, TAB 10/01/22 Empagliflozin (Jardiance) 25 Mg Tablet, 25 MG PO DAILY, TAB 10/01/22 Semaglutide (Ozempic) 0.25 Mg/0.4 Ml Pen.injctr, 0.05 MG SQ QWEEK 10/01/22 Simvastatin (Simvastatin) 20 Mg Tablet, 20 MG PO HS, TAB 10/01/22 Metoprolol Succinate (Metoprolol Succinate) 25 Mg Tab.er.24h, 25 MG PO DAILY, TAB 10/01/22 Discontinued Scripts Hydroxyzine Pamoate (Hydroxyzine Pamoate) 50 Mg Capsule, 50 MG PO TIDP PRN for ANXIETY/AGITATION, #30 CAP 2 Refills Prov:LINNETTE YOUNG Sr., MD 01/30/23 Cetirizine HCl (Zyrtec) 10 Mg Capsule, 10 MG PO BID, #60 CAP 2 Refills Prov:LINNETTE YOUNG Sr., MD 01/30/23 Tramadol Hcl (Tramadol HCl) 50 Mg Tablet, 50 MG PO Q6HPRN PRN for PAIN, #30 TAB 0 Refills Prov:BEATRIZ QUARLES MD 10/03/22 Continued Medications: Atorvastatin Calcium (Lipitor) 10 Mg Tab 1 TAB PO HS for 30 Days, #30 TAB 0 Refills Empagliflozin (Jardiance) 25 Mg Tablet 1 TAB PO DAILY for 30 Days, #30 TAB 0 Refills Metoprolol Succinate (Metoprolol Succinate) 25 Mg Tab.er.24h 1 TAB PO BID for 30 Days, #30 TAB 0 Refills Sacubitril/Valsartan (Entresto 24 mg-26 mg Tablet) 24 Mg-26 Mg Tablet 1 TAB PO BID for 30 Days, #60 TAB 0 Refills Spironolactone (Spironolactone) 25 Mg Tablet 1 TAB PO DAILY for 30 Days, #30 TAB 0 Refills Time spent arranging discharge: 31-60 minutes ATTESTATION BY PHYSICIAN I have seen and examined the patient. I reviewed the documentation, medical decision making, and treatment plan as noted by the mid-level provider above. I agree with the findings and plan of care. Hermila Evans MD, ELIZABETH NP Dec 17, 2024 11:38
[2024-12-17 12:00] VITALS: BP 98/55; PULSE 80; RESP 18; TEMP 98.5
[2024-12-17] MEDS: LOPERAMIDE 1 MG/7.5 ML UDCUP PO PRN (14:07)
[2024-12-17 19:50] VITALS: BP 110/57; PULSE 80; RESP 20; TEMP 99.2
--- NOTE | 2024-12-17 20:28 | NUR ---
DISCHARGE NOTE Discharge instructions read and reviewed with patient at bedside. IV and ID bands removed. Patient to follow up with PCP in 2-3 days. Taken down to private vehicle via wheelchair.
== END 2024-12-17 20:30 | disposition home or self-care (01) ==
LOC: EDH 13:46 → INTOOBSV 18:42 → UNDOADMIN 18:42 → EDHIP 18:42 → UNDOADMOB 18:42 → EDHIP 21:05 → 4BH 21:05
PROVIDERS: ADMIT Internal Medicine; ATTEND Internal Medicine
DX: K85.90 Acute pancreatitis without necrosis or infection, unspecified (principal); E72.3 Disorders of lysine and hydroxylysine metabolism; K52.9 Noninfective gastroenteritis and colitis, unspecified; E11.65 Type 2 diabetes mellitus with hyperglycemia; D72.829 Elevated white blood cell count, unspecified; R11.2 Nausea with vomiting, unspecified; K42.9 Umbilical hernia without obstruction or gangrene; I11.0 Hypertensive heart disease with heart failure; I50.9 Heart failure, unspecified; E78.00 Pure hypercholesterolemia, unspecified; K59.00 Constipation, unspecified; I25.10 Atherosclerotic heart disease of native coronary artery without angina pectoris; N28.1 Cyst of kidney, acquired; E66.9 Obesity, unspecified; Z95.0 Presence of cardiac pacemaker; Z68.34 Body mass index [BMI] 34.0-34.9, adult; Z90.710 Acquired absence of both cervix and uterus; Z79.899 Other long term (current) drug therapy; Z98.890 Other specified postprocedural states; Z20.822 Contact with and (suspected) exposure to COVID-19
CPT/HCPCS: 96376 ×2; 96361 ×4; 96365; 96375; 99285; 82550; 84484 ×2; 84478; 80053 ×2; 83880; 83690 ×2; 85027 ×2; 87880; 87804 ×2; 82948 ×4; 81001; 36415 ×2; 87635; 74176; 96372; 96366; 84443; 83735; 84100; 87040 ×2; J7120; J7030; J2405 ×3; J2270; J2543 ×3; J1885; G0378 ×9; J1650; 96374